=== PATIENT | female | born 1955 | race Caucasian/White ===

== ENCOUNTER 2017-01-20 19:34 | Emergency (ER) | payer OTHER ==
[~2017-01-20] VITALS: Ht 154.9 cm; Wt 80.0 kg
[2017-01-20 19:37] VITALS: BP 183/82; PULSE 74; RESP 14; TEMP 98.7; O2SAT 100
--- NOTE | 2017-01-20 20:30 | PD ---
Physical Exam Date Seen by Provider: Jan 20, 2017 Time Seen by Provider: 20:29 Data Data Last Documented VS Vital Signs Date Time Temp Pulse Resp B/P Pulse Ox O2 Delivery O2 Flow Rate FiO2 01/20/17 19:37 98.7 74 14 183/82 100 Room Air MDM Supervised Visit with SYBIL: No Narrative Course 61 YO F with complaint of fall in [facility] at noon on to the left knee. Ambulatory since accident. Complains of 7/10 neck stiffness and left arm numbness since ~3-4 o clock today. Vitals reviewed. Patient seen in triage, awaiting bed placement. Ambika Garcia Jan 20, 2017 20:30
--- NOTE | 2017-01-20 21:52 | RADRPT ---
EXAM DATE/TIME: 01/20/2017 21:40 [facility] COMPARISON: No previous studies available for comparison. INDICATIONS : Left knee pain from a fall ealier today. MEDICAL HISTORY : None. SURGICAL HISTORY : None. ENCOUNTER: Initial ACUITY: 1 day PAIN SCORE: 3/10 LOCATION: Left Knee FINDINGS: Two view examination of the left knee demonstrates no evidence of fracture or dislocation. Bony mine ralization is normal. The suprapatellar soft tissues have a normal configuration. CONCLUSION: Unremarkable limited examination of the left knee. Stan Sanchez MD on January 20, 2017 at 21:50 Board Certified Radiologist. This report was verified electronically.
--- NOTE | 2017-01-20 21:53 | RADRPT ---
EXAM DATE/TIME: 01/20/2017 21:35 [facility] COMPARISON: No previous studies available for comparison. INDICATIONS : Fall earlier today now neck pain, stiffness, and left arm numbness. MEDICAL HISTORY : None. SURGICAL HISTORY : None. ENCOUNTER: Initial ACUITY: 1 day PAIN SCORE: 3/10 LOCATION: Left neck FINDINGS: Two projection examination was performed. There is normal alignment and curvature of the vertebral b odies down to the level of C7. No evidence of fracture or subluxation. Vertebral body height is jaimie ntained. The disc spaces are maintained. The prevertebral soft tissues are of normal thickness. Th e atlanto-axial articulation is intact. CONCLUSION: No acute disease. Stan Sanchez MD on January 20, 2017 at 21:50 Board Certified Radiologist. This report was verified electronically.
--- NOTE | 2017-01-20 22:47 | PD ---
HPI Chief Complaint: Fall Time Seen by Provider: 22:46 Travel History International Travel<30 days: No Contact w/Intl Traveler<30days: No Traveled to known affect area: No History of Present Illness HPI 61-year-old female came to the emergency room with history of neck pain, some tingling of her left upper extremity and right knee pain after [facility]. Patient says that the floor was wet and she didn't see it and slipped and fell forward. She landed on her right knee and try to catch her face and head from hitting on the ground with her right upper extremity. But her head sort of snapped back and since then she has been feeling pain in her back of the neck as well as the tingling of her left upper extremity. She denies any previous neck issues. Before I saw her she had x-ray of her cervical spine and right knee done. She came in to the ED walking with the tech. She was able to ambulate pretty okay. X-rays were within normal limits. Patient says she just wanted to be safe and that's why came in. She is not on any blood thinners. She says she took Aleve prior to coming in. FORMERLY [facility], [facility] Past Medical History Narrative Medical List of her past medical, surgical, social and family history is reviewed from the nursing note. Cardiovascular Problems: Yes (HTN ) Past Surgical History Cholecystectomy: Yes Social History Alcohol Use: Yes (TWICE WEEKLY) Tobacco Use: No Substance Use: No Allergies-Medications (Allergen,Severity, Reaction): Coded Allergies: No Known Allergies (Verified , 01/20/17) Comments No known drug allergies. Reported Meds & Prescriptions Reported Meds & Active Scripts Active Flexeril (Cyclobenzaprine HCl) 5 Mg Tab 5 Mg PO TID Narrative Medication List of her home medications reviewed from the nursing note. Review of Systems Except as stated in HPI: all other systems reviewed are Neg Physical Exam Narrative GENERAL: Awake, alert, mild distress SKIN: Focused skin assessment warm/dry. HEAD: Atraumatic. Normocephalic. EYES: Pupils equal and round. No scleral icterus. No injection or drainage. ENT: No nasal bleeding or discharge. Mucous membranes pink and moist. NECK: Trachea midline. No JVD. CARDIOVASCULAR: Regular rate and rhythm. No murmur appreciated. RESPIRATORY: No accessory muscle use. Clear to auscultation. Breath sounds equal bilaterally. GASTROINTESTINAL: Abdomen soft, non-tender, nondistended. Hepatic and splenic margins not palpable. MUSCULOSKELETAL: No obvious deformities. No clubbing. No cyanosis. No edema. Good range of motion in all 4 extremities. Left arm distal pulses and sensation intact. NEUROLOGICAL: Awake and alert. No obvious cranial nerve deficits. Motor grossly within normal limits. Normal speech. PSYCHIATRIC: Appropriate mood and affect; insight and judgment normal. Data Data Last Documented VS Vital Signs Date Time Temp Pulse Resp B/P Pulse Ox O2 Delivery O2 Flow Rate FiO2 01/20/17 19:37 98.7 74 14 183/82 100 Room Air Orders Knee, Ltd (1 Or 2vws) (01/20/17 21:14) Spine, Cervical - Ltd (Ap&Lat) (01/20/17 21:14) Acetamin-Hydrocod 325-5 Mg ([place] 5-325 (01/20/17 23:00) Cyclobenzaprine (Flexeril) (01/20/17 23:00) [facility] Medical Decision Making Medical Screen Exam Complete: Yes Emergency Medical Condition: Yes Medical Record Reviewed: Yes Differential Diagnosis Cervical strain Narrative Course 10:59 PM patient was given by mouth hydrocodone and Flexeril here. Her granddaughter drove her in and would take her back. She will be discharged home on prescription. Diagnosis Primary Impression: Cervical strain, acute Qualified Code: S16.1XXA - Cervical strain, acute, initial encounter Referrals: Primary Care Physician Additional Instructions: Please return to the ER if the condition worsens or any other new concerns. Otherwise take the medication as per the prescription direction in addition to Aleve/ibuprofen/Advil/Motrin. The prescribed muscle relaxant will cause grogginess. Do not drive or operate heavy machinery while taking them. Med/Other Pt SpecificInfo: Prescription(s) given Scripts Cyclobenzaprine (Flexeril)5 Mg Tab5 Mg PO TID #15 TAB Ref 0 Prov:Shane Strong MD 01/20/17 Disposition: 01 DISCHARGE HOME Condition: Stable Shane Strong MD Jan 20, 2017 22:46
[2017-01-20] MEDS ORDERED: ACETAMINOPHEN/HYDROcodone 325 MG/5 MG TAB PO ONE (23:00)
[2017-01-20] MEDS ORDERED: CYCLOBENZAPRINE HCL 10 MG TAB PO ONE (23:00)
[2017-01-20] MEDS ORDERED: CYCL5TAB PO (23:01)
== END 2017-01-20 23:15 | disposition home or self-care (01) ==
LOC: NEPD 19:34
DX: S16.1XXA Strain of muscle, fascia and tendon at neck level, initial encounter (principal); M25.562 Pain in left knee; W01.0XXA Fall on same level from slipping, tripping and stumbling without subsequent striking against object, initial encounter; Y92.512 Supermarket, store or market as the place of occurrence of the external cause
CPT/HCPCS: 72040; 73560; 99284